=== PATIENT | male | born 1990 | race Caucasian/White ===

== ENCOUNTER 2019-12-02 12:44 | Emergency (ER) | payer BC, OTHER ==
[~2019-12-02] VITALS: Ht 188 cm; Wt 119.7 kg
[2019-12-02] MEDS ORDERED: ALBU8.5H INH (12:52)
[2019-12-02 14:54] VITALS: BP 136/86
== END 2019-12-02 14:57 | disposition home or self-care (01) ==
LOC: M ED 12:44
DX: F32.9 Major depressive disorder, single episode, unspecified (principal); Z63.1 Problems in relationship with in-laws; Z79.51 Long term (current) use of inhaled steroids; Z87.891 Personal history of nicotine dependence; Z91.030 Bee allergy status